=== PATIENT | female | born 1990 | race Hispanic/Latino ===

== ENCOUNTER 2021-06-26 10:21 | Outpatient (CLI) | payer BC, SELFPAY ==
[2021-06-26 12:03] LABS: Hematocrit 39.2 % (37.0-47.0); Hemoglobin 13.1 g/dL (12.0-15.0); Mean Corpuscular HGB Conc 33.4 g/dl (32-36); Mean Corpuscular Hemoglobin 31.5 pg (26-34); Mean Corpuscular Volume 94.2 fl (80-100); Platelet Count Result 249 k/mm3 (150-375); Red Blood Count 4.16 M/mm3 (4.2-5.4); Red Cell Distribution Width 12.5 % (11.5-14.5); White Blood Count 6.7 K/mm3 (4.5-10.0)
== END 2021-06-26 10:22 | disposition home or self-care (01) ==
LOC: ANHSURGERY 10:33
PROVIDERS: Visit Provider Obstetrics & Gynecology Gynecologic Oncology
DX: Z30.09 Encounter for other general counseling and advice on contraception (principal)
CPT/HCPCS: 36415; 85027; 86850; 86900; 86901

== ENCOUNTER 2021-06-29 02:05 | Day surgery (SDC) | payer BC, SELFPAY ==
[2021-06-26 11:00] VITALS: BP 102/58; PULSE 64; RESP 14; TEMP 36.5; O2SAT 99; BMI 27.6
--- NOTE | 2021-06-26 11:32 | PC.NURSE ---
Report to the Outpatient Waiting Room, entrance under the green pavilion located off [facility], at time ___10:00AM____ on date __06/29/21 . OR Time: ____12:00PM____. - You and your visitor will be asked a series of questions to screen for COVID 19 for your protection. - A mask is required within the hospital. Preoperative COVID Testing Requirements: No COVID Test needed if: (proof is required; if not received patient will have Rapid Test prior to entry) - Patient has received COVID Vaccine at least 14 days prior to procedure date or - Patient has positive COVID test result within last 90 days of surgery date. COVID Test needed if above criteria is not met If not COVID vaccinated a COVID test must be conducted within 72 hours of surgery and patient is asked to isolate self from time of testing until procedure. You will go to the [employer] [facility] for your COVID testing. The [employer] [facility] site is located at the corner of [address] [facility]. You will only be called if COVID results are positive and your surgeon may reschedule your elective surgery date. Patients may have clear liquids (water, carbonated beverages, clear teas, apple juice) until 3 hours prior to surgery with a maximum of 20 ounces. - No food from midnight until time of surgery - Infants may have breast milk until 4 hours before surgery, infant formula 6 hours prior to surgery. - Children will be allowed to drink immediately following surgery. If applicable, please bring a bottle or sippy cup to assist with drinking. Juice, water, soda, and popsicles are readily available. For infants on formula, please bring formula the day of surgery. Pacifiers are allowed. Take the following medications with a SIP of water the morning of surgery: ____NONE Medications to discontinue per physician NONE Date to take last dose Please no make-up, nail swedish, hairspray, perfume, deodorant, or body powder the day of surgery. No jewelry (including any body piercings) or valuables the day of surgery, leave them at home. Please take a shower or bath the night before, or the morning of, surgery with an antibacterial soap. Wear comfortable, loose fitting clothing. Children are encouraged to wear pajamas. - Jewelry must be removed prior to entering the operating room. Rings and piercings that are not removed may be cut off. - The hospital will not accept responsibility for valuables. - Please leave all valuables, including medications, at home the day of surgery. If you are going home after surgery, a licensed deliver driver must drive you home. - NO public transportation without another adult. - We recommend that an adult stay with you for 24 hours following discharge. - We also recommend that you do not drive, make important decision, drink alcoholic beverages, or take any drugs that were not prescribed by your health care provider for at least 24 hours after your discharge time. For Pediatric surgeries, we recommend two adults accompany the child home (only one inside the building at this time). One visitor will be allowed to accompany the patient into the hospital. Patients visitor will be instructed to remain with patient at all times or leave the building. We will allow the visitor to come back to the postoperative area when patient is ready. Follow any additional instructions given to you from your surgeon. Telephone instructions given to _PATIENT/INTERPRETOR and asked if any additional questions and then verbalized understanding. Patient advised to call surgeon office or pre surgery nurse liaison [phone] if any additional questions.
[2021-06-29] VITALS (8 sets, daily range): BP systolic 91–117; BP diastolic 48–70; PULSE 46–65; RESP 10–16; TEMP 36.2–36.4; O2SAT 99–100
--- NOTE | 2021-06-29 10:07 | WPDANESEPPF ---
Anes - Initial Pre Proc Eval Procedure: Operation Date: 06/29/21 12:00 Proposed Procedures p Diagnostic Laparoscopy, Bilateral Salpingectomy - Chrissie Mir DO Date/Time: 06/29/21 10:07 Surgeon: Chrissie Mir DO Pre Op Diagnosis: desires sterility Patient Data Age: 31 Gender: F Height: 1.56 m Weight: 65.7 kg Last Vital Signs Temp 36.2 C L 06/29/21 09:22 Pulse 58 L 06/29/21 09:22 Resp 16 06/29/21 09:22 BP 107/61 06/29/21 09:22 Pulse Ox 100 06/29/21 09:22 Allergies Allergy/AdvReac Type Severity Reaction Status Date / Time No Known Allergies Allergy Verified 06/29/21 09:48 Home Medications Medication Instructions Recorded Confirmed Type No Home Medications 06/26/21 06/29/21 History Patient hx anesthesia problems: none Family hx anesthesia problems: none Results Review: All pre-operative results and documents have been reviewed as part of the pre-operative evaluation. [facility] Social History Social History Smoking status: Never smoker Living arrangements: with family Additional living arrangements comments: SPOUSE Spiritual care concerns: No Anes - Eval Final PreProcedure Day of Procedure 06/29/21 10:07 Patient weight: overweight Heart: regular rate and rhythm Lungs: clear to auscultation Airway: Mallampati scale class II Neurological: alert and oriented Last oral intake: >/= 8 hours ASA classification: II Emergent: no Anesthetic plan: proceed Anesthesia type and monitoring: general ETT and standard monitoring Results Review: All pre-operative results and documents have been reviewed as part of the pre-operative evaluation. Informed Consent: The patient's anesthetic plan and its attendant risks and benefits were discussed with the patient/family/POA. Questions were solicited and answers provided to the satisfaction of the patient/family/POA.
[2021-06-29] MEDS: LACTATED RINGERS 1,000 ML 30 ML IV CONT ×2 (10:21→13:23)
[2021-06-29] MEDS: GABAPENTIN 300 MG CAPSULE PO (10:22)
[2021-06-29] MEDS: ACETAMINOPHEN 500 MG TABLET 1000 MG PO (10:22)
--- NOTE | 2021-06-29 10:28 | SUR.PREOP ---
[employer] SHANTAL [id number], FABRICIO [id number], NIRAJ [id number] USED.
--- NOTE | 2021-06-29 12:02 | P.HP_ITS ---
H&P: HPI History of Present Illness Date/Time: 06/29/21 12:02 Chief Complaint: I'm here for my surgery Narrative: HPI taken with the use of airplane pilot crop dusting. Patient presents for permanent sterilization Review of Systems Review of Systems: All systems reviewed & are unremarkable except as noted in HPI and below PMFSH Social History Social History Smoking status: Never smoker Living arrangements: with family Additional living arrangements comments: SPOUSE Spiritual care concerns: No Meds Home Medications and Allergies Home Medications Medication Instructions Recorded Confirmed Type No Home Medications 06/26/21 06/29/21 History Allergies Allergy/AdvReac Type Severity Reaction Status Date / Time No Known Allergies Allergy Verified 06/29/21 09:48 Vital Signs Vital Signs - 24 hr 06/29/21 09:22 Temperature 36.2 C L Pulse Rate 58 L Respiratory Rate 16 Blood Pressure 107/61 Pulse Oximetry 100 Exam Const: General: comfortable and no acute distress Resp: Auscultation: clear to auscultation bilaterally Cardio: Rate: regular rate Rhythm: regular rhythm GI: GI Palp: Yes Soft to palpation Percussion: Yes normal to percussion Auscultation: normal bowel sounds Skin: General skin exam: normal color and no rashes or lesions noted Neuro: General: gait normal Speech: normal speech Extrem: Right upper extremity: normal to inspection Left upper extremity: normal to inspection Right lower extremity: normal to inspection Left lower extremity: normal to inspection Psych: Mental Status: mental status grossly normal Affect: normal affect Assessment and Plan Assessment and plan (1) Sterilization: Code(s): Z30.2 - Encounter for sterilization Status: Acute Additional Plan Diagnostic laparoscopy, bilateral salpingectomy
--- NOTE | 2021-06-29 12:04 | WPDHPUPDATE1 ---
History and Physical Update Update Date/Time: 06/29/21 12:04 History and Physical has been reviewed, including an updated exam of the patient. There are NO changes in the patient's condition. Risks, benefits, and alternatives have been discussed and questions answered. Patient agrees to proceed with procedure.
--- NOTE | 2021-06-29 13:21 | W.PM.PROC2 ---
Procedure Note - Detailed Date of Procedure 06/29/21 Pre-op Diagnosis desires sterility Post-op Diagnosis Same Procedure Performed Diagnostic laparoscopy, bilateral salpingectomy. Surgeon Chrissie Mir DO [employer] [facility] Anesthesia General Indications Desires sterility Findings Normal appearing vulva and vaginal canal. Normal appearing medium-sized cervix. Within the abdomen her anatomy was unremarkable. The liver gallbladder bowels omentum and pelvic structures appear normal. Description of Procedure Patient was taken to the operating room where she was placed under general anesthesia. No preoperative antibiotics were indicated. She was prepped and draped in the normal sterile fashion in a dorsal lithotomy position. A speculum was placed in the cervix was visualized, a single-tooth tenaculum was used to grasp the anterior lip of the cervix. Cervix was dilated up to accommodate a Kroner uterine manipulator. The cervix was sounded to 7 cm, and a manipulator was placed. Busch catheter was placed in the usual fashion. The tenaculum and the speculum removed, gloves were changed and attention was then turned to the abdomen. The skin below the umbilicus was grasped with 2 penetrating towel clamps. The area was injected with local containing epinephrine an incision was made with a scalpel. A Veress needle was introduced and the saline water drop test was performed. CO2 insufflation was started with a filling pressure was noted to be too high so the Veress needle was removed. Direct entry with a 5 mm trocar was then attempted and was successful. There was evidence of some preperitoneal insufflation. Survey of the abdomen revealed no evidence of bowel or vascular injury upon entry. Patient was then placed in steep Trendelenburg position. Additional port sites in the right and left lower quadrants were identified, injected, and incised. 5 mm trocars were introduced under direct visualization. The uterus was then elevated and deviated to the right. Of note there was no abnormalities in the uterus or ovaries. There did appear to be some edema noted at the cornua bilaterally but more prominently on the left. The left tube was then elevated and was cauterized and transected off using LigaSure. It was then passed off through the assistant maintenance manager port. The procedure was repeated in an identical fashion on the right side of the patient. This tube was then also passed off through the assistant maintenance manager port. The tubes were sent to pathology separately. All surgical pedicles were reinspected and found to be hemostatic. The trocars were removed from the abdomen and CO2 insufflation was allowed to escape. The incisions were closed with subcuticular 4-0 Monocryl suture. All instrument sponge counts were correct at the conclusion of the procedure and the patient was taken to the recovery room in stable condition. Implants None Estimated Blood Loss 2 IV Fluids 1,000 Urine Output 400 Drains No Packing No Pathology Yes (Bilateral fallopian tubes) Complications No immediate complications Condition Stable Disposition PACU
--- NOTE | 2021-06-29 15:06 | SUR.PHASEII ---
1500 DR. LOPEZ CALLED TO ASK RE: AND HYDROCODONE. DR. SCOTT'D TAKING MED.
== END 2021-06-29 15:05 | disposition home or self-care (01) ==
PROVIDERS: Visit Provider Obstetrics & Gynecology Gynecologic Oncology
PROC: (CPT 49320; principal; 2021-06-29 12:00)
DX: Z30.2 Encounter for sterilization (principal)
CPT/HCPCS: 58661; 36415; 86850; 86900; 86901; 88302; A9270; J1100; J2250; J2405; J2704; J3010; J7030; J7120